=== PATIENT | female | born 1950 | race Hispanic/Latino ===

== ENCOUNTER 2021-09-06 13:00 | Observation (INO) | payer MEDICARE ==
[~2021-09-06] VITALS: Ht 154.9 cm; Wt 58.0 kg
[2021-09-07 10:26] LABS: BASOPHILS % (AUTO) 0.9 % (0.0-5.0); EOSINOPHILS % (AUTO) 8.2 % (0.0-8.0); HEMATOCRIT 41.6 % (42-54); LYMPHOCYTES % (AUTO) 27.5 % (21.0-51.0); MEAN CORPUSCULAR HEMOGLOBIN 31.5 pg (27.0-33.0); MEAN CORPUSCULAR HGB CONC 32.2 g/dL (32.0-36.0); MEAN CORPUSCULAR VOLUME 97.9 fL (79-99); MONOCYTES % (AUTO) 9.5 % (3.0-13.0); NEUTROPHILS % (AUTO) 53.9 % (40.0-77.0); PLATELET COUNT (AUTO) 209 K/uL (130-400); RED BLOOD CELL COUNT(AUTO) 4.25 MIL/uL (4.50-6.20); RED CELL DISTRIBUTION WIDTH 12.7 % (11.0-15.5); WHITE BLOOD COUNT (AUTO) 5.4 K/uL (4.8-10.8)
[2021-09-07 10:29] LABS: APPEARANCE,URINE Clear (CLEAR); BILIRUBIN,URINE Negative (NEGATIVE); COLOR,URINE Yellow (YELLOW); GLUCOSE, URINE (UA) Negative (NEGATIVE); KETONES,URINE Negative (NEGATIVE); LEUKOCYTE ESTERASE ,URINE Negative (NEGATIVE); NITRATE,URINE Negative (NEGATIVE); OCCULT BLOOD,URINE Negative (NEGATIVE); PROTEIN,URINE Negative (NEGATIVE); UROBILINOGEN,URINE 0.2 mg/dL (0.2-1.0)
[2021-09-07 10:33] LABS: CREATININE 0.5 mg/dL (0.5-1.5); POTASSIUM 4.4 mmol/L (3.5-5.1)
[2021-09-07 10:36] LABS: PROTHROMBIN TIME 10.9 SEC (9.6-11.6)
[2021-09-07 14:19] VITALS: BP 136/68
[2021-09-07] MEDS ORDERED: LEVO75CA5 PO (15:27)
[2021-09-07] MEDS ORDERED: CERT400S SQ (15:27)
[2021-09-07] MEDS ORDERED: PANT20TA18 PO (15:27)
[2021-09-07] MEDS ORDERED: MONT-39 PO (15:27)
[2021-09-07] MEDS ORDERED: CARV12.511 PO (15:27)
[2021-09-07] MEDS ORDERED: ALEN70TA80 PO (15:27)
[2021-09-07] MEDS ORDERED: CYCL30DR OP (15:27)
[2021-09-07] MEDS ORDERED: BUDE10.2 IH (15:27)
[2021-09-07] MEDS ORDERED: LEFL20TA18 PO (15:27)
[2021-09-07] MEDS ORDERED: LATA7.5D OP (15:27)
[2021-09-07] MEDS ORDERED: ALBU0.63 IH (15:27)
[2021-09-07] MEDS ORDERED: CETI10TA57 PO (15:27)
[2021-09-07] MEDS ORDERED: DICL1KIT14 TP (15:27)
[2021-09-07] MEDS ORDERED: FLUT15.845 NS (15:27)
[2021-09-07] MEDS ORDERED: LOSA50TA64 PO (15:27)
[2021-09-07] MEDS ORDERED: ATOR10TA69 PO (15:27)
[2021-09-10] VITALS (22 sets, daily range): BP systolic 123–161; BP diastolic 56–98
[2021-09-10] MEDS ORDERED: LACTATED RINGERS 1000ML 1,000 ML IV ONE (09:07)
[2021-09-10] MEDS: CEFAZOLIN SODIUM 1 GM VIAL ONE ×2 (09:17→11:39)
[2021-09-10] MEDS ORDERED: CEFAZOLIN SODIUM 1 GM VIAL ONE (09:58)
[2021-09-10] MEDS ORDERED: TRANEXAMIC ACID 1000MG/10ML ONE ×2 (10:34→15:44)
[2021-09-10] MEDS ORDERED: SUCCINYLCHOLINE CHLORIDE 20 MG/ML 10 ML VIAL ONE (11:09)
[2021-09-10] MEDS ORDERED: DEXAMETHASONE SOD PHOSPHATE 10MG/ML 1ML VIAL ONE ×2 (11:10→15:21)
[2021-09-10] MEDS ORDERED: GLYCOPYRROLATE 1 MG/5 ML SYRINGE ONE (11:10)
[2021-09-10] MEDS ORDERED: MIDAZOLAM HCL 1 MG/ML 2ML VIAL ONE (11:10)
[2021-09-10] MEDS ORDERED: LIDOCAINE PF 100MG/5ML (2%) SYRINGE 5ML ONE (11:10)
[2021-09-10] MEDS ORDERED: PROPOFOL 10 MG/ML 20ML VIAL IV ONE (11:10)
[2021-09-10] MEDS ORDERED: NEOSTIGMINE 5MG/5ML SYR IV ONE (11:10)
[2021-09-10] MEDS ORDERED: ROCURONIUM 10MG/1ML SYR 10 MG/ML ML ONE ×2 (11:15→14:01)
[2021-09-10] MEDS ORDERED: FENTANYL CITRATE PF 50 MCG/1 ML 2ML VIAL ONE ×3 (11:16→15:21)
[2021-09-10] MEDS ORDERED: CEFAZOLIN SODIUM 1 GM VIAL IRRIG ONE (12:34)
[2021-09-10] MEDS ORDERED: EPHEDRINE SULFATE 50 MG/ML AMPULE ONE (12:47)
[2021-09-10] MEDS ORDERED: DiphenhydrAMINE HCL 50 MG/ML VIAL IVP PRN (15:30)
[2021-09-10] MEDS: 0.9%NACL 1000ML 1,000 ML IV SCH (15:30)
[2021-09-10] MEDS ORDERED: FE FUMARATE/FA/MV, MIN COMB#15 1 TAB PO PRN (15:30)
[2021-09-10] MEDS ORDERED: KETOROLAC 15MG/ML VIAL (15MG/ML) IV PRN (15:30)
[2021-09-10] MEDS ORDERED: POTASSIUM CHLORIDE 10% ELIXIR 20 MEQ/15 ML UDCUP PO PRN (15:30)
[2021-09-10] MEDS ORDERED: TRAMADOL HCL 50 MG TABLET PO PRN (15:30)
[2021-09-10] MEDS ORDERED: POTASSIUM CHLORIDE 20MEQ/100ML 100 ML IV PRN (15:30)
[2021-09-10] MEDS ORDERED: KCL 20 MEQ ERTAB PO PRN (15:30)
[2021-09-10] MEDS ORDERED: CALCIUM CARB 500MG PO PRN (15:30)
[2021-09-10] MEDS ORDERED: LIDOCAINE HCL-MPF 1% 2ML VIAL IV PRN (15:30)
[2021-09-10] MEDS ORDERED: OXYCODONE HCL 5 MG TAB PO PRN (15:30)
[2021-09-10] MEDS ORDERED: TEMAZEPAM 15 MG CAPSULE PO PRN (15:30)
[2021-09-10] MEDS: ACETAMINOPHEN 500 MG TABLET PO SCH (17:59)
[2021-09-10] MEDS ORDERED: CIMZIA SQ SCH (18:30)
[2021-09-10] MEDS ORDERED: NON-FORMULARY MEDICATION 1 EACH (Alendronate Sodium 70 MG) PO SCH (18:30)
[2021-09-10] MEDS ORDERED: NON-FORMULARY MEDICATION 1 EACH (Albuterol Sulfate 0.63 MG) IH PRN (18:30)
[2021-09-10] MEDS ORDERED: NON-FORMULARY MEDICATION 1 EACH (Fluticasone Propionate 15.8 ML) NASAL SCH (18:30)
[2021-09-10] MEDS: PHARMACY COMMUNICATION MISC SCH (20:00)
[2021-09-10] MEDS: CYCLOSPORINE OP SCH (21:00)
[2021-09-10] MEDS: SYMBICORT 160-4.5 MCG INHALER IH SCH (21:00)
[2021-09-10] MEDS ORDERED: FAMOTIDINE 20MG TAB PO SCH (21:00)
[2021-09-10] MEDS: CARVEDILOL 12.5 MG TABLET PO SCH (21:46)
[2021-09-10] MEDS: ATORVASTATIN 10 MG TABLET PO SCH (21:46)
[2021-09-10] MEDS: MONTELUKAST SODIUM 10 MG TAB PO SCH (21:46)
[2021-09-10] MEDS: ASPIRIN 81 MG EC TAB PO SCH (21:46)
[2021-09-10] MEDS: CEFAZOLIN SODIUM 1 GM VIAL IVP SCH (21:47)
[2021-09-10] MEDS: LATANOPROST 2.5 ML DROPS OU SCH (21:48)
[2021-09-10] MEDS: OXYCODONE HCL 5 MG TAB PO PRN (21:58)
[2021-09-11] MEDS: ACETAMINOPHEN 500 MG TABLET PO SCH ×5 (00:12→17:57)
[2021-09-11 03:58] LABS: HEMATOCRIT 36.8 % (36-48); MEAN CORPUSCULAR HEMOGLOBIN 31.5 pg (27.0-33.0); MEAN CORPUSCULAR HGB CONC 32.6 g/dL (32.0-36.0); MEAN CORPUSCULAR VOLUME 96.6 fL (79-99); RED BLOOD CELL COUNT(AUTO) 3.81 MIL/uL (4.00-5.50); RED CELL DISTRIBUTION WIDTH 12.7 % (11.0-15.5); WHITE BLOOD COUNT (AUTO) 10.2 K/uL (4.8-10.8)
[2021-09-11 04:04] VITALS: BP 149/81
[2021-09-11 04:09] LABS: CREATININE 0.6 mg/dL (0.5-1.5); POTASSIUM 3.7 mmol/L (3.5-5.1)
[2021-09-11] MEDS: CEFAZOLIN SODIUM 1 GM VIAL IVP SCH (04:17)
[2021-09-11] MEDS: 0.9%NACL 1000ML 1,000 ML IV SCH ×2 (04:18→11:30)
[2021-09-11] MEDS: LEVOTHYROXINE 75 MCG TABLET PO SCH (06:30)
[2021-09-11] MEDS: PHARMACY COMMUNICATION MISC SCH ×4 (08:00→20:00)
[2021-09-11 08:09] VITALS: BP 151/82
[2021-09-11] MEDS ORDERED: KETOROLAC 30MG VIAL (30MG/ML) ONE (08:40)
[2021-09-11] MEDS: ASPIRIN 81 MG EC TAB PO SCH ×2 (08:43→20:10)
[2021-09-11] MEDS: PANTOPRAZOLE 40 MG TAB DR PO SCH (08:43)
[2021-09-11] MEDS: POLYETHYLENE GLYCOL 3350 17 GM POWD.PACK PO SCH (08:46)
[2021-09-11] MEDS: CETIRIZINE HCL 5 MG TABLET PO SCH (08:48)
[2021-09-11] MEDS: CARVEDILOL 12.5 MG TABLET PO SCH ×2 (09:00→20:11)
[2021-09-11] MEDS: CYCLOSPORINE OP SCH ×2 (09:00→20:14)
[2021-09-11] MEDS: SYMBICORT 160-4.5 MCG INHALER IH SCH ×2 (09:00→20:14)
[2021-09-11] MEDS: (Leflunomide 20 MG) PO SCH (09:00)
[2021-09-11 10:42] VITALS: BP 140/67
[2021-09-11] MEDS: LOSARTAN 50 MG TABLET PO SCH (11:14)
[2021-09-11 15:22] VITALS: BP 146/68
[2021-09-11] MEDS: ONDANSETRON 4MG INJ IVP PRN (16:22)
[2021-09-11] MEDS: MONTELUKAST SODIUM 10 MG TAB PO SCH (20:11)
[2021-09-11] MEDS: ATORVASTATIN 10 MG TABLET PO SCH (20:11)
[2021-09-11] MEDS: LATANOPROST 2.5 ML DROPS OU SCH (20:12)
[2021-09-11 20:58] VITALS: BP 161/74
[2021-09-11] MEDS: OXYCODONE HCL 5 MG TAB PO PRN (22:41)
[2021-09-11 23:48] VITALS: BP 136/73
[2021-09-12 04:34] VITALS: BP 139/75
[2021-09-12] MEDS: LEVOTHYROXINE 75 MCG TABLET PO SCH (06:05)
[2021-09-12] MEDS: ACETAMINOPHEN 500 MG TABLET PO SCH ×2 (06:06→15:44)
[2021-09-12 07:49] VITALS: BP 152/70
[2021-09-12] MEDS: PANTOPRAZOLE 40 MG TAB DR PO SCH (08:54)
[2021-09-12] MEDS: CARVEDILOL 12.5 MG TABLET PO SCH (08:54)
[2021-09-12] MEDS: POLYETHYLENE GLYCOL 3350 17 GM POWD.PACK PO SCH (08:55)
[2021-09-12] MEDS: ASPIRIN 81 MG EC TAB PO SCH (08:55)
[2021-09-12] MEDS: (Leflunomide 20 MG) PO SCH (09:00)
[2021-09-12] MEDS: CETIRIZINE HCL 5 MG TABLET PO SCH (09:00)
[2021-09-12] MEDS: CYCLOSPORINE OP SCH (09:00)
[2021-09-12 10:36] VITALS: BP 108/64
[2021-09-12] MEDS: ONDANSETRON 4MG INJ IVP PRN (11:26)
[2021-09-12] MEDS: LOSARTAN 50 MG TABLET PO SCH (11:26)
[2021-09-12] MEDS: SYMBICORT 160-4.5 MCG INHALER IH SCH (13:15)
[2021-09-12 15:37] VITALS: BP 132/64
[2021-09-12] MEDS ORDERED: HYDR-4060 PO (17:20)
[2021-09-13] MEDS ORDERED: BISACODYL 10 MG SUPP.RECT RC PRN (15:30)
== END 2021-09-12 19:45 | disposition home or self-care (01) ==
LOC: EDSTATUS 09-07 09:00 → DAHIP 09-10 07:40 → EDSEX 09-10 09:00 → 4AH 09-10 16:53
PROVIDERS: ADMIT Orthopaedic Surgery; ATTEND Orthopaedic Surgery
DX: S42.412K Displaced simple supracondylar fracture without intercondylar fracture of left humerus, subsequent encounter for fracture with nonunion (principal); Z20.822 Contact with and (suspected) exposure to COVID-19; M19.122 Post-traumatic osteoarthritis, left elbow; I10 Essential (primary) hypertension; E03.9 Hypothyroidism, unspecified; Z96.653 Presence of artificial knee joint, bilateral; X58.XXXD Exposure to other specified factors, subsequent encounter
CPT/HCPCS: 24363; 36415 ×2; 64415; 73080; 76942; 80048 ×2; 81003; 85025; 85027; 85610; 87088; 87635; 87641; 96374; 96375; 96376 ×2; 97039 ×3; 97116; 97161; 97530 ×3; A4215; A4221; A4222; A4223; A4452; A4565; A4600; A4649 ×5; A4663; A4930 ×2; A5120; A6223; C1776 ×2; G0378 ×50; J0330; J0690 ×5; J1100 ×2; J2001; J2250; J2405 ×3; J2704; J2710; J3010 ×3; J3490 ×4; J7030; J7120; G0379; J1885